=== PATIENT | male | born 1950 | race Caucasian/White ===

== ENCOUNTER 2017-07-28 07:07 | Day surgery (SDC) | payer OTHER ==
[~2017-07-28] VITALS: Ht 167.6 cm; Wt 74.4 kg
[~2017-07-28 07:07] MED LIST: AMLO10 PO; ASPI325 PO; RAMI2.5 PO
== END 2017-07-28 11:07 | disposition home or self-care (01) ==
LOC: ORSCMMR 07:07 → ORD 08:45 → ORSCMMR 08:45
PROVIDERS: Surgery
PROC: 0YU50JZ Supplement Right Inguinal Region with Synthetic Substitute, Open Approach (ICD-10-PCS; principal; 2017-07-28 08:45)
DX: K40.90 Unilateral inguinal hernia, without obstruction or gangrene, not specified as recurrent (principal); I10 Essential (primary) hypertension; Z79.82 Long term (current) use of aspirin; Z79.899 Other long term (current) drug therapy
CPT/HCPCS: C1781; J0690; J1100; J2250; J2405; J3010; J7120

== ENCOUNTER 2017-10-19 07:30 | Day surgery (SDC) | payer OTHER ==
[~2017-10-19] VITALS: Ht 167.6 cm; Wt 67.1 kg
[2017-10-19] MEDS ORDERED: SIMBRINZA 1%-0.28 ML (08:01)
[2017-10-19] MEDS ORDERED: Combigan Eye Dro5 ML (08:01)
[2017-10-19] MEDS ORDERED: Istalol2.5 ML (08:02)
[2017-10-19] MEDS ORDERED: Xalatan2.5 ML (08:02)
== END 2017-10-19 09:55 | disposition home or self-care (01) ==
LOC: ORSCSDS 07:30
PROVIDERS: Internal Medicine Gastroenterology
PROC: 0DBH8ZX Excision of Cecum, Via Natural or Artificial Opening Endoscopic, Diagnostic (ICD-10-PCS; principal; 2017-10-19 09:00)
DX: Z12.11 Encounter for screening for malignant neoplasm of colon (principal); D12.0 Benign neoplasm of cecum; I10 Essential (primary) hypertension; Z80.0 Family history of malignant neoplasm of digestive organs; K57.30 Diverticulosis of large intestine without perforation or abscess without bleeding; Z79.899 Other long term (current) drug therapy
CPT/HCPCS: 88305; J0330; J1980; J2405; J7120

== ENCOUNTER 2020-07-29 07:45 | Day surgery (SDC) | payer OTHER ==
[~2020-07-29] VITALS: Ht 165.1 cm; Wt 78.7 kg
[~2020-07-29 07:45] MED LIST changes: +Combigan Eye Dro5 ML; +Istalol2.5 ML; +SIMBRINZA 1%-0.28 ML; +Xalatan2.5 ML
[2020-07-29] MEDS ORDERED: METF500 PO (08:06)
== END 2020-07-29 09:32 | disposition home or self-care (01) ==
LOC: ORSCSDS 07:45
PROVIDERS: Orthopaedic Surgery
PROC: 01N50ZZ Release Median Nerve, Open Approach (ICD-10-PCS; principal; 2020-07-29 09:00)
DX: G56.02 Carpal tunnel syndrome, left upper limb (principal); I10 Essential (primary) hypertension; E11.9 Type 2 diabetes mellitus without complications; Z79.84 Long term (current) use of oral hypoglycemic drugs; Z79.899 Other long term (current) drug therapy
CPT/HCPCS: 82947; J0690; J2250; J3010; J7120

== ENCOUNTER 2023-03-09 11:51 | Day surgery (SDC) | payer OTHER ==
[~2023-03-09] VITALS: Ht 162.6 cm; Wt 72.0 kg
[~2023-03-09 11:51] MED LIST changes: +METF500 PO
[2023-03-09 12:43] VITALS: BP 142/80
== END 2023-03-09 14:10 | disposition home or self-care (01) ==
LOC: ORSCSDS 11:51
PROVIDERS: Internal Medicine Gastroenterology
PROC: 0DJD8ZZ Inspection of Lower Intestinal Tract, Via Natural or Artificial Opening Endoscopic (ICD-10-PCS; principal; 2023-03-09 13:15)
DX: Z12.11 Encounter for screening for malignant neoplasm of colon (principal); Z86.010 Personal history of colon polyps; Z80.0 Family history of malignant neoplasm of digestive organs; Z85.51 Personal history of malignant neoplasm of bladder; Z79.84 Long term (current) use of oral hypoglycemic drugs; Z79.899 Other long term (current) drug therapy; Z09 Encounter for follow-up examination after completed treatment for conditions other than malignant neoplasm
CPT/HCPCS: 74270; 82947; J2704; J7120